=== PATIENT | male | born 1965 | race Caucasian/White ===

== ENCOUNTER → 2021-12-17 | Outpatient (CLI) | payer MEDICARE, OTHER ==
[~2021-12-17] MED LIST: ROBAXIN-750750 MG PO; ZANAFLEX2 MG PO; ZANAFLEX4 MG PO
== END ==
LOC: EMI 14:57
DX: M75.101 Unspecified rotator cuff tear or rupture of right shoulder, not specified as traumatic (principal); R93.6 Abnormal findings on diagnostic imaging of limbs
CPT/HCPCS: 73221

== ENCOUNTER 2022-04-18 14:52 | Inpatient (IN) | payer MEDICARE, OTHER ==
[~2022-04-18] VITALS: Ht 182.9 cm; Wt 66.0 kg
[2022-04-18 16:35] LABS: HEMOGLOBIN 12.9 gm/dl (14.0-17.5); RED BLOOD COUNT 4.52 M/UL (4.20-5.50); WHITE BLOOD COUNT 11.2 K/UL (4.5-11.0)
[2022-04-18] MEDS ORDERED: ROXICODONE TAB 55 MG PO (16:39)
[2022-04-18] MEDS ORDERED: NARCAN4 MG (16:40)
[2022-04-18 17:10] LABS: BUN/CREATININE RATIO 12 (0-10)
[2022-04-19 03:18] LABS: RED BLOOD COUNT 3.86 M/UL (4.20-5.50); WHITE BLOOD COUNT 7.6 K/UL (4.5-11.0)
[2022-04-19 03:54] LABS: BUN/CREATININE RATIO 14 (0-10)
[2022-04-20 04:46] LABS: HEMOGLOBIN 11.5 gm/dl (14.0-17.5); RED BLOOD COUNT 4.05 M/UL (4.20-5.50); WHITE BLOOD COUNT 7.1 K/UL (4.5-11.0)
[2022-04-20 05:15] LABS: BUN/CREATININE RATIO 9 (0-10)
[2022-04-21 07:42] LABS: BUN/CREATININE RATIO 10 (0-10)
[2022-04-22 01:50] LABS: HEMOGLOBIN 11.2 gm/dl (14.0-17.5); RED BLOOD COUNT 3.95 M/UL (4.20-5.50); WHITE BLOOD COUNT 8.5 K/UL (4.5-11.0)
[2022-04-22 02:05] LABS: BUN/CREATININE RATIO 11 (0-10)
[2022-04-23 02:54] LABS: HEMOGLOBIN 11.3 gm/dl (14.0-17.5); RED BLOOD COUNT 3.95 M/UL (4.20-5.50); WHITE BLOOD COUNT 6.6 K/UL (4.5-11.0)
[2022-04-23 03:11] LABS: BUN/CREATININE RATIO 10 (0-10)
[2022-04-23] MEDS ORDERED: LEVOFLOXACIN500 MG PO (16:29)
[2022-04-23] MEDS ORDERED: SILVADENE20 GM TOP (16:29)
[2022-04-24 02:55] LABS: HEMOGLOBIN 11.6 gm/dl (14.0-17.5); RED BLOOD COUNT 4.03 M/UL (4.20-5.50); WHITE BLOOD COUNT 7.4 K/UL (4.5-11.0)
[2022-04-24 03:11] LABS: BUN/CREATININE RATIO 11 (0-10)
[2022-04-24] MEDS ORDERED: TYLOPHEN500 MG PO (14:15)
--- NOTE | 2022-04-24 16:21 | NUR ---
CALLED REPORT TO [facility] WHO SAID THEY WOULD VISIT THE PATIENT TOMORROW.
== END 2022-04-24 15:44 | disposition home health service (06) | DRG 935 ==
LOC: ER1 14:52 → M/S 16:35 → CDU 16:35 → M/S 20:48
PROVIDERS: Internal Medicine; Physician Assistant; Student in an Organized Health Care Education/Training Program; ADMIT Internal Medicine
DX: T22.211A Burn of second degree of right forearm, initial encounter (principal); E87.1 Hypo-osmolality and hyponatremia; G82.20 Paraplegia, unspecified; T22.212A Burn of second degree of left forearm, initial encounter; J44.9 Chronic obstructive pulmonary disease, unspecified; Z96.611 Presence of right artificial shoulder joint; Z96.612 Presence of left artificial shoulder joint; T24.201A Burn of second degree of unspecified site of right lower limb, except ankle and foot, initial encounter; F12.10 Cannabis abuse, uncomplicated; Z99.3 Dependence on wheelchair; Z98.890 Other specified postprocedural states; Z93.0 Tracheostomy status; Z88.5 Allergy status to narcotic agent; Z88.8 Allergy status to other drugs, medicaments and biological substances; Z83.6 Family history of other diseases of the respiratory system; Z87.891 Personal history of nicotine dependence; Z79.899 Other long term (current) drug therapy
CPT/HCPCS: 36415; 80048; 80053; 80202; 83735; 85025; 85027; 86140; 90471; 90714; 96374; 96375; 97162; 97166; 99284; J0295; J1170; J1650; J2270; J2405; J3370; J7070